=== PATIENT | female | born 1950 | race Caucasian/White ===

== ENCOUNTER 2019-05-30 22:05 | Emergency (ER) | payer MEDICAID, MEDICARE ==
[2019-05-30 22:23] LABS: ABS Basophils 0.1 10^3/ul (0-0.2); ABS Eosinophils 0.1 10^3/ul (0-0.6); ABS Lymphocytes 2.4 10^3/ul (1.0-4.8); ABS Neutrophils 4.1 10^3/ul (1.5-7.7); Eosinophil % 1.8 %; Hematocrit 46 % (35-47); Hemoglobin 15.8 g/dL (12.0-16.0); Lymphocyte % 31.5 %; Mean Corpuscular HGB Conc 34 g/dL (31-36); Mean Corpuscular Hemoglobin 33 pg (27-31); Mean Corpuscular Volume 97 fL (80-97); Mean Platelet Volume 8.3 fL (7.4-10.4); Nucleated Red Blood Cells % 0.1; Platelet Count 222 10^3/uL (150-450); Red Blood Count 4.78 10^6 /uL (3.70-4.87); Red Cell Distribution Width 13 % (10-15); White Blood Count 7.7 10^3/uL (3.5-10.8)
--- OUTSIDE RECORDS SUMMARY | 2019-05-30 22:27 | XMS REPORT | Continuity of Care Document ---
:1950 External Reference #:[id number] Author Name Prabhjot Duke, OD Address [address] [place] [address] Care Team Providers Name Role Phone Demario Martin MD - General Care Team Information T[employer] [facility] Problems Active Problems Provider Date Retinal hemorrhage Prabhjot Gregg O.D. Onset: 03/14/2015 Vitreous degeneration Prabhjot Gregg O.D. Onset: 03/14/2015 Social History Type Date Description Comments Sex Unknown ETOH Use Occasionally consumes alcohol Tobacco Use Start: Unknown Patient has never smoked Smoking Status Reviewed: 04/19/19 Patient has never smoked Allergies, Adverse Reactions, Alerts Active Allergies Reaction Severity Comments Date Penicillins 03/14/2015 Sulfa Antibiotics 03/14/2015 Medications Active Medications SIG Qnty Indications Ordering Provider Date No Active Medications Unknown 04/19/2019 History Medications Ciprofloxacin HCL instill 1 drop 5ml T15.12xA Edilson Matias, 03/22/2019 - 0.3% left eye three M.D. 04/19/2019 Solution times a day Immunizations Description No Information Available Vital Signs Date Vital Result Comment 04/19/2019 11:14am Intraocular Pressure Right Eye 16 mmHg Intraocular Pressure Left Eye 16 mmHg 03/18/2017 10:47am Intraocular Pressure Right Eye 16 mmHg Intraocular Pressure Left Eye 16 mmHg Results Description No Information Available Procedures Date Code Description Status 04/19/2019 41177 Ophthalmoscopy Subsequent Completed 04/19/2019 38525 Refraction Completed 04/19/2019 23383 Eye Exam Est Comprehensive Completed 03/22/2019 08780 Remove Foreign Body Conjunctiva Embedded Completed Medical Devices Description No Information Available Encounters Type Date Location Provider Dx Diagnosis Office Visit 03/24/2019 Main Office Edilson Matias, T15.12xD Foreign body in 11:30a M.D. conjunctival sac, left eye, subs encntr Office Visit 03/22/2019 Main Office Edilson Matias, T15.12xA Foreign body in 8:00a M.D. 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 subsequent encounter 03/22/2019 T15.12xA Foreign body in conjunctival sac, left eye, Edilson Matias M.D. initial encounter 03/22/2019 S05.02xA Injury of conjunctiva and corneal abrasion Edilson Matias M.D. without foreign body, left eye, initial encounter Plan of Treatment 04/19/2019 - Prabhjot Duke, ODH43.21 Crystalline deposits in vitreous body, right eyeH43.813 Vitreous degeneration, cklartogqK07.433 Paving stone degeneration of retina, lkcentoydC69.13 Age-related nuclear cataract, oaxjaidrpK54.4 PresbyopiaFollow up:yearly full, sooner PRN Functional Status Description No Information Available Mental Status Description No Information Available Referrals Description No Information Available
[2019-05-30 22:32] LABS: INR 1.03 (0.82-1.09)
[2019-05-30 22:41] LABS: Albumin 4.1 g/dL (3.2-5.2); Albumin/Globulin Ratio 1.4 (1-3); BUN/Creatinine Ratio 13.2 (8-20); Calcium 9.6 mg/dL (8.6-10.3); EGFR African American 74.8 (>60); EGFR Non-African American 61.9 (>60); Potassium 3.5 mmol/L (3.5-5.0); Total Bilirubin 0.6 mg/dL (0.2-1.0); Total Protein 7.1 g/dL (6.4-8.9)
[2019-05-30 22:42] LABS: Troponin I 0.01 ng/mL (<0.03)
--- NOTE | 2019-05-30 22:57 | ED ---
HPI Chest Pain - HPI Summary HPI Summary: Pt is a 68 y/o F presenting to the ED with a chief complaint of chest pain initially onset sometime today. She received her flu shot about 1 month ago and states that she has not felt great since. This morning around 0830 she went to the gym where she did 30 minutes of cardio and light weightlifting, then started feeling slightly lightheaded so she left early. She was with her granddaughter most of the day and states the pain came on intermittently, lasting anywhere from a few minutes to 30 minutes at a time. It is mostly in her back, but she notices it in her chest as well. She denies abd pain, nausea, vomiting, headaches, trouble speaking, or trouble walking. - History of Current Complaint Chief Complaint: EDChestPainROMI Time Seen by Provider: 05/30/19 22:44 Hx Obtained From: Patient Onset/Duration: Started Hours Ago, Still Present Timing: Intermittent, Lasting Minutes Initial Severity: Mild Current Severity: Mild Pain Intensity: 3 Pain Scale Used: 0-10 Numeric Chest Pain Location: Diffuse Chest Pain Radiates: Yes Chest Pain Radiates To:: Back Character: Other: - cramping Aggravating Factor(s): Nothing Alleviating Factor(s): Spontaneous Resolution Associated Signs and Symptoms: Positive: Chest Pain, Lightheadedness. Negative : Nausea, Abdominal Pain, Vomiting, Other: - headaches, trouble speaking, trouble walking - Allergy/Home Medications Allergies/Adverse Reactions: Allergies Allergy/AdvReac Type Severity Reaction Status Date / Time Penicillins Allergy Hives Verified 05/30/19 22:15 Sulfa (Sulfonamide Allergy Hives Verified 05/30/19 22:15 Antibiotics) PMH/Surg Hx/FS Hx/Imm Hx Previously Healthy: Yes Endocrine/Hematology History: Denies: Hx Diabetes Cardiovascular History: Reports: Hx Hypertension Infectious Disease History: No Infectious Disease History: Denies: Traveled Outside the [place] in Last 30 Days - Family History Known Family History: Negative: Cardiac Disease - Social History Lives: With Family Alcohol Use: None Hx Substance Use: No Substance Use Type: Reports: None Hx Tobacco Use: No Smoking Status (MU): Never Smoked Tobacco Review of Systems Positive: Chest Pain Negative: Abdominal Pain, Vomiting, Nausea Positive: Myalgia - back pain. Negative: Other - trouble walking Neurological: Other - lightheadedness Negative: Headache, Slurred Speech All Other Systems Reviewed And Are Negative: Yes Physical Exam - Summary Physical Exam Summary: Appearance: Well-appearing, Well-nourished, lying in bed comfortably. Elevated BP noted. Skin: Warm, dry, no obvious rash Eyes: sclera anicteric, no conjunctival pallor ENT: mucous membranes moist, pharynx appears normal Neck: Supple, nontender Respiratory: Clear to auscultation, no signs of respiratory distress Cardiovascular: Tachycardia noted. No murmurs. Normal distal pulses in tibial and radial bilaterally. Abdomen: Soft, nontender, normal active bowel sounds present Musculoskeletal: Normal, Strength/ROM Intact. On back exam, pt is not tender to palpation or percussion of the spine. Neurological: A&Ox3, awake and alert, mentation is normal, speech is fluent and appropriate Psychiatric: affect is normal, does not appear anxious or depressed Triage Information Reviewed: Yes Vital Signs On Initial Exam: Initial Vitals Temp Pulse Resp BP Pulse Ox 98.1 F 109 18 213/95 100 05/30/19 22:06 05/30/19 22:06 05/30/19 22:06 05/30/19 22:06 05/30/19 22:06 Vital Signs Reviewed: Yes Procedures - Sedation Patient Received Moderate/Deep Sedation with Procedure: No Diagnostics - Vital Signs Vital Signs Temp Pulse Resp BP Pulse Ox 05/30/19 22:06 98.1 F 109 18 213/95 100 - Laboratory Lab Results: Lab Results 05/30/19 05/30/19 05/30/19 Range/Units 22:16 22:16 22:16 WBC 7.7 (3.5-10.8) 10^3/uL RBC 4.78 (3.70-4.87) 10^6 /uL Hgb 15.8 (12.0-16.0) g/dL Hct 46 (35-47) % MCV 97 (80-97) fL MCH 33 H (27-31) pg MCHC 34 (31-36) g/dL RDW 13 (10-15) % Plt Count 222 (150-450) 10^3/uL MPV 8.3 (7.4-10.4) fL Neut % (Auto) 53.1 % Lymph % (Auto) 31.5 % [place] % (Auto) 12.9 % Eos % (Auto) 1.8 % Baso % (Auto) 0.7 % Absolute Neuts (auto) 4.1 (1.5-7.7) 10^3/ul Absolute Lymphs (auto) 2.4 (1.0-4.8) 10^3/ul Absolute Monos (auto) 1.0 H (0-0.8) 10^3/ul Absolute Eos (auto) 0.1 (0-0.6) 10^3/ul Absolute Basos (auto) 0.1 (0-0.2) 10^3/ul Absolute Nucleated RBC 0.0 10^3/ul Nucleated RBC % 0.1 INR (Anticoag Therapy) 1.03 (0.82-1.09) Sodium 137 (135-145) mmol/L Potassium 3.5 (3.5-5.0) mmol/L Chloride 104 (101-111) mmol/L Carbon Dioxide 26 (22-32) mmol/L Anion Gap 7 (2-11) mmol/L BUN 12 (6-24) mg/dL Creatinine 0.91 (0.51-0.95) mg/dL Est GFR ( Amer) 74.8 (>60) Est GFR (Non-Af Amer) 61.9 (>60) BUN/Creatinine Ratio 13.2 (8-20) Glucose 120 H (70-100) mg/dL Calcium 9.6 (8.6-10.3) mg/dL Total Bilirubin 0.60 (0.2-1.0) mg/dL AST 16 (13-39) U/L ALT 11 (7-52) U/L Alkaline Phosphatase 108 H (34-104) U/L Troponin I 0.01 (<0.03) ng/mL Total Protein 7.1 (6.4-8.9) g/dL Albumin 4.1 (3.2-5.2) g/dL Globulin 3.0 (2-4) g/dL Albumin/Globulin Ratio 1.4 (1-3) Result Diagrams: 05/30/19 22:16 05/30/19 22:16 Lab Statement: Any lab studies that have been ordered have been reviewed, and results considered in the medical decision making process. - Radiology CXR Radiology Interpretation Completed By: ED Physician Summary of Radiographic Findings: No acute process. Pending official radiology report. - EKG 2208 Cardiac Rate: Tachycardia - 100bpm EKG Rhythm: Sinus Tachycardia ST Segment: Normal Ectopy: None Summary of EKG Findings: EKG at 2208 shows sinus tachycardia at 100 BPM, P waves , QRS complex, and T waves are within normal limits, T waves and intervals are normal, no ischemic changes. This is a normal EKG. ED physician has reviewed and interpreted this EKG. Chest Pain Course/Dx - Course Course Of Treatment: Pt is a 68 y/o F presenting to the ED with a chief complaint of chest pain gradually onset sometime today that has been intermittent, lasting anywhere from 5-30 minutes. She reports some lightheadedness this morning with her workout. The pain is notable in her back but also her chest. She denies abd pain, nausea, vomiting, headaches, trouble speaking, or trouble walking. On exam, pts elevated BP and tachycardia is noted. EKG at 2208 shows sinus tachycardia at 100 BPM, P waves, QRS complex, and T waves are within normal limits, T waves and intervals are normal, no ischemic changes. This is a normal EKG. ED physician has reviewed and interpreted this EKG. CXR shows no acute process, pending official radiology report. Pt will be d/c'ed with dx of thoracic back strain. - Diagnoses Provider Diagnoses: Strain of thoracic back region Discharge ED - Sign-Out/Discharge Documenting (check all that apply): Patient Departure - Discharge Plan Condition: Stable Disposition: HOME Patient Education Materials: Thoracic Back Strain (ED) Referrals: [facility] [Outside] - If Needed - Billing Disposition and Condition Condition: STABLE Disposition: Home - Attestation Statements Document Initiated by Amber: Yes Documenting Scribe: Lynette Jacob Provider For Whom Amber is Documenting (Include Credential): Sergo Patrick MD. Scribe Attestation: Lynette Dueñas scribed for Sergo Patrick MD. on 05/31/19 at 0633. Scribe Documentation Reviewed: Yes Provider Attestation: The documentation as recorded by the Lynette parmar accurately reflects the service I personally performed and the decisions made by me, Sergo Patrick MD. Status of Scribe Document: Viewed
[2019-05-30] MEDS ORDERED: Metoprolol Tartrate IV* 1 MG/ML 5 ML VIAL IV ONE (22:58)
[2019-05-31 01:33] VITALS: BP 157/94
[2019-05-31 01:37] LABS: Troponin I 0.03 ng/mL (<0.03)
[2019-05-31 02:00] LABS: Urine Appearance Clear; Urine Bilirubin Negative (Negative); Urine Blood Negative (Negative); Urine Color Straw; Urine Glucose Negative (Negative); Urine Ketones Negative (Negative); Urine Nitrite Negative (Negative); Urine Protein Negative (Negative); Urine Specific Gravity 1.005 (1.010-1.030); Urine Urobilinogen Negative (Negative)
[2019-05-31 02:07] LABS: Urine Bacteria Absent (Absent); Urine Red Blood Cell Trace(0-2/hpf) (Absent); Urine White Blood Cell Trace(0-5/hpf) (Absent)
--- NOTE | 2019-05-31 10:29 | ED ---
Imaging and Labs Follow Up Follow Up Type: Imaging Imaging Result: IMPRESSION: 1. NO ACUTE CARDIOPULMONARY PROCESS. 2. SUBCENTIMETER PULMONARY NODULAR DENSITY SEEN IN THE UPPER LUNG ZONES. Patient Communication/Plan: spoke with patient about results. discussed to follow up with primary if imaging may be need an a year. Provider Diagnoses: Strain of thoracic back region
== END 2019-05-31 01:28 | disposition home or self-care (01) ==
LOC: ED 22:05
DX: S29.012A Strain of muscle and tendon of back wall of thorax, initial encounter (principal); X50.9XXA Other and unspecified overexertion or strenuous movements or postures, initial encounter; Y92.9 Unspecified place or not applicable; R07.9 Chest pain, unspecified; M54.9 Dorsalgia, unspecified; R42 Dizziness and giddiness; R11.10 Vomiting, unspecified; Z88.2 Allergy status to sulfonamides; I10 Essential (primary) hypertension; R94.31 Abnormal electrocardiogram [ECG] [EKG]
CPT/HCPCS: 36415; 71046; 80053; 81003; 81015; 83605; 84484; 85025; 85379; 85610; 87086; 93005; 96374; 99283; J3490